=== PATIENT | male | born 2000 | race Caucasian/White ===

== ENCOUNTER 2018-12-23 02:36 | Emergency (ER) | payer OTHER, BC ==
[~2018-12-23] VITALS: Ht 177.8 cm; Wt 106.8 kg
[~2018-12-23 02:36] MED LIST: ACETAMINOPHEN OR; IBUP600T OR; No Historical Meds
[2018-12-23] MEDS ORDERED: LISI-542 (02:41)
[2018-12-23 03:27] LABS: CARBOXYHEMOGLOBIN 2.4 % (0.0-1.5); VENOUS BASE EXCESS 0.2 (-2.0-2.0); VENOUS HCO3 26.6 MEQ/L (23.0-27.0); VENOUS O2 SATURATION 95.8 % (60.0-80.0); VENOUS PARTIAL PRESSURE O2 82.3 mmHg (30.0-50.0); VENOUS PH 7.352 UNITS (7.330-7.430); VENOUS STANDARD HCO3 24.6 MEQ/L; VENOUS TOTAL CO2 28.1 MEQ/L (24.0-28.0)
[2018-12-23 03:48] VITALS: BP 149/72
--- NOTE | 2018-12-23 09:08 | REP ---
CHEST PA AND LATERAL: 12/23/2018. Clinical history: Cough and smoking. Comparison: 01/05/2011. Findings: Lungs are well inflated and clear. The heart, mediastinal and hilar contours normal. Aorta and airway intact. Bony thorax unremarkable. No free air under the diaphragm. Impression: 1. No acute cardiopulmonary change. Electronically Signed by Amarjit Vines MD 12/23/2018 09:33 A
== END 2018-12-23 03:49 | disposition home or self-care (01) ==
LOC: M ED 02:36
DX: J70.5 Respiratory conditions due to smoke inhalation (principal); Z79.899 Other long term (current) drug therapy

== ENCOUNTER → 2020-04-07 | Outpatient (CLI) | payer BC ==
[~2020-04-07] MED LIST changes: +LISI-542
== END ==
LOC: M PLALAB 11:20
PROVIDERS: ATTEND Nurse Practitioner Women's Health
DX: Z01.84 Encounter for antibody response examination (principal)